=== PATIENT | female | born 1980 | race Caucasian/White ===

== ENCOUNTER 2018-07-02 19:31 | Emergency (ER) | payer MEDICAID ==
--- NOTE | 2018-07-02 20:09 | EDM.PDOC ---
ED HPI GENERAL MEDICAL PROBLEM - General Chief Complaint: Lower Extremity Injury/Pain Stated Complaint: SWOLLEN RIGHT FOOT Time Seen by Provider: 07/02/18 19:45 Source of Information: Reports: Patient History Limitations: Reports: No Limitations - History of Present Illness INITIAL COMMENTS - FREE TEXT/NARRATIVE: Betsy comes in with a painful R foot over the past 24 hrs that is getting progressively worse. She believes she wounded the plantar surface when she stepped on a housecat yesterday, noting a small amount of BRB and concerned that a cat claw or tooth may be imbedded. She resumed Keflex Cap yesterday empirically. Her tetanus vax status is current. right foot Pain Score (Numeric/FACES): 10 - Related Data Allergies Allergy/AdvReac Type Severity Reaction Status Date / Time No Known Allergies Allergy Verified 07/02/18 19:46 Home Meds: Home Meds FLUoxetine HCl [Prozac] 40 mg PO DAILY 07/02/18 [History] Past Medical History Psychiatric History: Reports: Depression - Past Surgical History Female Surgical History: Reports: Section Social & Family History - Tobacco Use Smoking Status *Q: Current Every Day Smoker Years of Tobacco use: 20 Packs/Tins Daily: 0.5 - Recreational Drug Use Recreational Drug Use: No Review of Systems - Review of Systems Review Of Systems: ROS reveals no pertinent complaints other than HPI. ED EXAM, GENERAL - Physical Exam Exam: See Below General Appearance: Alert, WD/WN, No Apparent Distress Head: Normocephalic Neck: Normal Inspection, Supple, Non-Tender Respiratory/Chest: Lungs Clear Cardiovascular: Regular Rate, Rhythm, No Murmur (Female) Exam: Deferred Rectal (Female) Exam: Deferred Back Exam: Normal Inspection Extremities: Normal Range of Motion, No Pedal Edema, Other (R foot plantar: small area of discoloration with some induration and tenderness overlying proximal 5th MC; this was prepped and unroofed, revealing exudate and a small abscess, WC obtained. The area was lightly debrided and covered. ) Neurological: Alert, Oriented, CN II-XII Intact, Normal Cognition, No Motor/ Sensory Deficits Psychiatric: Normal Affect, Normal Mood Skin Exam: Warm, Dry, Wound/Incision (R foot plantar: small area of discoloration and tenderness with appearance of abscess formation) ED TRAUMA EXTREMITY PROCEDURES - I&D Site: Right foot plantar Skin Prep: Chlorhexidine (Hibiciens) Area Incised With: Other (#10 blade) Drainage: Purulent, Small Amount Probed to Break Up Loculations: No Packed With: None Sterile Dressing: Adhesive Dressing Complications: No Course - Vital Signs Text/Narrative:: Patient tolerated procedure well. Last Recorded V/S: Last Vital Signs Temp Pulse 77 07/02/18 19:35 Resp 16 07/02/18 19:35 BP 119/67 07/02/18 19:35 Pulse Ox 100 07/02/18 19:35 - Orders/Labs/Meds Orders: Active Orders 24 hr Category Date Time Status CULTURE ROUTINE + SMEAR [RM] Stat Lab 07/02/18 19:56 Received Departure - Departure Time of Disposition: 20:08 Disposition: Home, Self-Care 01 Condition: Good Clinical Impression: Cellulitis of right foot - Discharge Information *PRESCRIPTION DRUG MONITORING PROGRAM REVIEWED*: Not Applicable *COPY OF PRESCRIPTION DRUG MONITORING REPORT IN PATIENT TIFFANIE: Not Applicable Instructions: Cellulitis, Adult Referrals: Sushila Fox PA-C [Primary Care Provider] - Forms: ED Department Discharge - Problem List & Annotations (1) Cellulitis of right foot SNOMED Code(s): 513842210 Code(s): L03.115 - CELLULITIS OF RIGHT LOWER LIMB Status: Acute Current Visit: Yes Annotation/Comment:: I suggested warm sudsy soaks daily, keep clean and dry, and continue Keflex 500 mg tid from home. A note for medical leave was provided. - Problem List Review Problem List Initiated/Reviewed/Updated: Yes - My Orders Last 24 Hours: My Active Orders 07/02/18 19:56 CULTURE ROUTINE + SMEAR [RM] Stat - Assessment/Plan Last 24 Hours: My Active Orders 07/02/18 19:56 CULTURE ROUTINE + SMEAR [RM] Stat Plan: Follow up with PCP if needed.
== END 2018-07-02 20:10 | disposition home or self-care (01) ==
LOC: FB.ED 19:31
DX: L03.115 Cellulitis of right lower limb (principal); F17.210 Nicotine dependence, cigarettes, uncomplicated
CPT/HCPCS: 10060; 87070; 87077; 87186; 87205; 99283-25

== ENCOUNTER 2018-07-10 13:26 | Emergency (ER) | payer MEDICAID ==
[2018-07-10] MEDS ORDERED: Ketorolac 30 MG/ML SDV IM ONE ×2 (13:51→14:45)
[2018-07-10] MEDS ORDERED: hydrOXYzine HCl 50 MG/ML SDV IM ONE (13:52)
--- NOTE | 2018-07-10 13:57 | EDM.PDOC ---
ED HPI GENERAL MEDICAL PROBLEM - General Chief Complaint: Headache Stated Complaint: [place] Time Seen by Provider: 07/10/18 13:40 Source of Information: Reports: Patient History Limitations: Reports: No Limitations - History of Present Illness INITIAL COMMENTS - FREE TEXT/NARRATIVE: Betsy comes into [facility] ED with a 48 hr hx of headache, occiptal frontal and retro orbital in location. Headache is alternately sharp and aching, with some nausea but no vomiting. She is unable to rest, and has lost her appetite. She is on no contraception, but is not sexually active, LMP earlier this month. She has tried Ibuprofen without benefit. Headache Pain Score (Numeric/FACES): 10 - Related Data Allergies Allergy/AdvReac Type Severity Reaction Status Date / Time No Known Allergies Allergy Verified 07/02/18 19:46 Home Meds: Home Meds FLUoxetine HCl [Prozac] 40 mg PO DAILY 07/02/18 [History] Mirtazapine 7.5 mg PO DAILY 07/10/18 [History] Past Medical History Psychiatric History: Reports: Depression - Past Surgical History Female Surgical History: Reports: Section ED ROS GENERAL - Review of Systems Review Of Systems: ROS reveals no pertinent complaints other than HPI. - Physical Exam Exam: See Below Exam Limited By: No Limitations General Appearance: Alert, WD/WN, Moderate Distress Eye Exam: Bilateral Eye: EOMI, Normal Inspection, PERRL Ears: Normal External Exam Nose: Normal Inspection Throat/Mouth: Normal Inspection, Normal Lips, Normal Gums, Normal Oropharynx, Normal Voice, No Airway Compromise Head Exam: Normocephalic, Scalp Tenderness Neck: Normal Inspection, Full Range of Motion, Tender Midline (mild) Respiratory/Chest: Lungs Clear, Normal Breath Sounds, Chest Non-Tender Cardiovascular: Regular Rate, Rhythm, No Murmur GI/Abdominal: Normal Bowel Sounds, Soft, Non-Tender, No Organomegaly, No Distention, No Mass (Female) Exam: Deferred Rectal (Female) Exam: Deferred Neuro Exam (Abbreviated): Alert, Oriented, CN II-XII Intact, Normal Cognition, Normal Gait, No Motor/Sensory Deficits Back Exam: Normal Inspection Extremities: Normal Inspection Psychiatric: Normal Affect, Normal Mood Skin Exam: Warm, Dry, Intact, Normal Color, No Rash Course - Vital Signs Text/Narrative:: Following assessment at the [facility] ED, I administered Toradol 30 mg IM x 2 and Vistaril 50 mg IM. Patient tolerated well. Last Recorded V/S: Last Vital Signs Temp 36.7 C 07/10/18 13:55 Pulse 88 07/10/18 13:55 Resp 18 07/10/18 13:55 BP 102/44 L 07/10/18 13:55 Pulse Ox 100 07/10/18 13:55 - Orders/Labs/Meds Orders: Active Orders 24 hr Category Date Time Status Ketorolac [Toradol] Med 07/10/18 14:45 Once 30 mg IM ONETIME ONE Medication Orders Ketorolac Tromethamine (Toradol) 30 mg IM ONETIME ONE Stop: 07/10/18 14:46 Meds: Medications Generic Name Dose Route Start Last Admin Trade Name Freq PRN Reason Stop Dose Admin Ketorolac Tromethamine 30 mg 07/10/18 14:45 Toradol IM 07/10/18 14:46 ONETIME ONE Discontinued Medications Generic Name Dose Route Start Last Admin Trade Name Freq PRN Reason Stop Dose Admin Hydroxyzine HCl 50 mg 07/10/18 13:52 07/10/18 14:02 Vistaril IM 07/10/18 13:53 50 mg ONETIME ONE Administration Ketorolac Tromethamine 30 mg 07/10/18 13:51 07/10/18 14:02 Toradol IM 07/10/18 13:52 30 mg ONETIME ONE Administration Departure - Departure Time of Disposition: 15:00 Disposition: Home, Self-Care 01 Condition: Fair Clinical Impression: Tension-type headache - Discharge Information *PRESCRIPTION DRUG MONITORING PROGRAM REVIEWED*: Not Applicable *COPY OF PRESCRIPTION DRUG MONITORING REPORT IN PATIENT TIFFANIE: Not Applicable Referrals: Sushila Fox PA-C [Primary Care Provider] - Forms: ED Department Discharge - Problem List & Annotations (1) Tension-type headache SNOMED Code(s): 540366723 Code(s): G44.209 - TENSION-TYPE HEADACHE, UNSPECIFIED, NOT INTRACTABLE Status: Acute Current Visit: Yes Annotation/Comment:: I suggested rest, NSAIDs of choice, and follow up if needed. - Problem List Review Problem List Initiated/Reviewed/Updated: Yes - My Orders Last 24 Hours: My Active Orders 07/10/18 14:45 Ketorolac [Toradol] 30 mg IM ONETIME ONE - Assessment/Plan Last 24 Hours: My Active Orders 07/10/18 14:45 Ketorolac [Toradol] 30 mg IM ONETIME ONE Plan: Follow up with PCP if needed.
== END 2018-07-10 15:38 | disposition home or self-care (01) ==
LOC: FB.ED 13:26
DX: G44.209 Tension-type headache, unspecified, not intractable (principal); Z79.899 Other long term (current) drug therapy
CPT/HCPCS: 96372; 99283; J1885; J3410